=== PATIENT | female | born 1960 ===

== ENCOUNTER 2025-10-28 10:00 | Outpatient (RCR) | payer BC, MEDICAID, SELFPAY ==
[2025-07-23 15:29] VITALS: BP 118/72; PULSE 74; RESP 16; O2SAT 99
== END 2025-10-29 13:52 | disposition home or self-care (01) ==
LOC: ANHCPREHAB 10:00
DX: I50.89 Other heart failure (principal); I50.42 Chronic combined systolic (congestive) and diastolic (congestive) heart failure; I42.8 Other cardiomyopathies; I27.82 Chronic pulmonary embolism; Z95.810 Presence of automatic (implantable) cardiac defibrillator; Z79.01 Long term (current) use of anticoagulants
CPT/HCPCS: 93798